=== PATIENT | female | born 1950 | race Caucasian/White ===

== ENCOUNTER 2019-12-04 10:38 | Inpatient (IN) ==
[2019-12-04] MEDS ORDERED: Fluticasone Propionate Nasal 50 MCG/SPRAY BOTTLE NS PRN (16:03)
[2019-12-04] MEDS: *HR* Rivaroxaban 10 MG TABLET PO SCH (17:09)
[2019-12-04] MEDS: *HR* Metformin 500 MG TABLET PO SCH (17:09)
[2019-12-04] MEDS ORDERED: *HR* HYDROmorphone 2 MG TABLET PO PRN (22:58)
[2019-12-04] MEDS ORDERED: hydrALAZINE 10 MG TABLET PO PRN (23:08)
[2019-12-05] MEDS ORDERED: *HR* HYDROmorphone 2 MG TABLET PO PRN (07:13)
[2019-12-05] MEDS ORDERED: Aspirin Enteric Coated 81 MG Tablet PO SCH (09:00)
[2019-12-05 09:08] LABS: Basophils % 0.3 %; Eosinophils # 0.1 K/mcL (0.0-0.6); Eosinophils % 1.6 %; Hemoglobin 13.5 g/dL (11.5-15.4); Immature Granulocytes % 0.1 % (0-4); Lymphocytes # 2.7 K/mcL (0.6-4.6); Lymphocytes % 38.8 %; Mean Corpuscular HGB Conc 32.9 g/dL (31.6-35.5); Mean Corpuscular Hemoglobin 32.1 pg (28.0-33.3); Mean Corpuscular Volume 97.6 fL (83.0-100.0); Monocytes # 0.8 K/mcL (0.0-1.3); Monocytes % 11.4 %; Neutrophils # 3.3 K/mcL (1.6-8.9); Platelet Count 213 K/mcL (140-400); Red Cell Distribution Width 13.9 % (11.5-14.5); Segmented Neutrophils % 47.8 %; White Blood Count 6.9 K/mcL (4.3-11.1)
[2019-12-05] MEDS: Multivit/Ca/Min/Fe/FA 1 TAB TABLET PO SCH (09:22)
[2019-12-05] MEDS: *HR* Pioglitazone 30 MG TABLET PO SCH (09:22)
[2019-12-05] MEDS: *HR* Metformin 500 MG TABLET PO SCH ×2 (09:22→17:25)
[2019-12-05] MEDS: *HR* Glimepiride 2 MG TABLET PO SCH (09:22)
[2019-12-05] MEDS: Cyanocobalamin (B-12) 1,000 MCG TABLET PO SCH (09:22)
[2019-12-05 09:47] LABS: BUN/Creatinine Ratio 12 (6-26); Blood Urea Nitrogen 13 mg/dL (8-23); Calcium 9.8 mg/dL (8.6-10.3); Carbon Dioxide 23 mEq/L (23-29); Chloride 98 mEq/L (98-107); Glucose 172 mg/dL (70-105); Osmolality,Calculated 284 (280-300); Potassium 3.7 mEq/L (3.5-5.1); Sodium 135 mEq/L (136-145); eGFR For African Americans > 60 (> 60); eGFR For Non-African Americans 51 (> 60)
[2019-12-05] MEDS: *HR* Rivaroxaban 10 MG TABLET PO SCH (17:25)
[2019-12-05] MEDS: Aspirin Enteric Coated 81 MG Tablet PO SCH (20:44)
[2019-12-05] MEDS: Latanoprost 2.5 ML BOTTLE BOTH EYES SCH (20:44)
[2019-12-06] MEDS: *HR* Glimepiride 2 MG TABLET PO SCH (08:04)
[2019-12-06] MEDS: *HR* Metformin 500 MG TABLET PO SCH ×2 (08:04→16:49)
[2019-12-06] MEDS: Cyanocobalamin (B-12) 1,000 MCG TABLET PO SCH (08:05)
[2019-12-06] MEDS: Multivit/Ca/Min/Fe/FA 1 TAB TABLET PO SCH (08:05)
[2019-12-06] MEDS: *HR* Pioglitazone 30 MG TABLET PO SCH (08:05)
[2019-12-06] MEDS: *HR* Rivaroxaban 10 MG TABLET PO SCH (16:49)
[2019-12-06] MEDS: Aspirin Enteric Coated 81 MG Tablet PO SCH (22:10)
[2019-12-06] MEDS: Latanoprost 2.5 ML BOTTLE BOTH EYES SCH (22:12)
[2019-12-07] MEDS: Multivit/Ca/Min/Fe/FA 1 TAB TABLET PO SCH (08:17)
[2019-12-07] MEDS: *HR* Glimepiride 2 MG TABLET PO SCH (08:18)
[2019-12-07] MEDS: *HR* Metformin 500 MG TABLET PO SCH ×2 (08:18→16:41)
[2019-12-07] MEDS: *HR* Pioglitazone 30 MG TABLET PO SCH (08:18)
[2019-12-07] MEDS: Cyanocobalamin (B-12) 1,000 MCG TABLET PO SCH (08:18)
[2019-12-07] MEDS: *HR* Rivaroxaban 10 MG TABLET PO SCH (16:41)
[2019-12-07] MEDS: Aspirin Enteric Coated 81 MG Tablet PO SCH (21:06)
[2019-12-07] MEDS: Latanoprost 2.5 ML BOTTLE BOTH EYES SCH (21:06)
[2019-12-08 07:39] VITALS: BP 115/73
[2019-12-08] MEDS: Cyanocobalamin (B-12) 1,000 MCG TABLET PO SCH (08:07)
[2019-12-08] MEDS: *HR* Metformin 500 MG TABLET PO SCH (08:08)
[2019-12-08] MEDS: Multivit/Ca/Min/Fe/FA 1 TAB TABLET PO SCH (08:08)
[2019-12-08] MEDS: *HR* Glimepiride 2 MG TABLET PO SCH (08:08)
[2019-12-08] MEDS: *HR* Pioglitazone 30 MG TABLET PO SCH (08:37)
== END 2019-12-08 10:12 | disposition home health service (06) | DRG 561 ==
LOC: INPGRE 15:12
PROVIDERS: ADMIT Family Medicine; ATTEND Family Medicine